=== PATIENT | female | born 1960 | race African-American/Black ===

== ENCOUNTER 2021-07-02 04:46 | Emergency (ER) | payer OTHER ==
[~2021-07-02] VITALS: Ht 170.2 cm; Wt 70.0 kg
[2021-07-02] MEDS ORDERED: HYDROcodone/APAP 5/325MG 1 TAB TABLET PO ONE (05:00)
[2021-07-02] MEDS ORDERED: KETOROLAC 60 MG/2 ML VIAL. IM ONE (05:00)
[2021-07-02] MEDS ORDERED: methylPREDNISolone SOD SUCC PF 125 MG/2 ML VIAL. IM ONE (05:00)
--- NOTE | 2021-07-02 05:09 | PHYS DOC ---
General Adult EDM: Chief Complaint: WRIST PAIN HPI: HPI: Patient is a 60 year old female who presents to ER for evaluation of right wrist pain. Patient states she woke up 2 days ago with right wrist pain. Patient states she slept on it. Patient denies any injury. Patient said the pain get worse, hurts worse with any movement. Patient denies any fever. Review of Systems: Review of Systems: Constitutional: Denies fever or chills. [] Eyes: Denies change in visual acuity. [] HENT: Denies nasal congestion or sore throat. [] Respiratory: Denies cough or shortness of breath. [] Cardiovascular: Denies chest pain or edema. [] GI: Denies abdominal pain, nausea, vomiting, bloody stools or diarrhea. [] : Denies dysuria. [] Musculoskeletal: Positive for right wrist pain Integument: Denies rash. [] Neurologic: Denies headache, focal weakness or sensory changes. [] Endocrine: Denies polyuria or polydipsia. [] Lymphatic: Denies swollen glands. [] Psychiatric: Denies depression or anxiety. [] Heart Score: C/O Chest Pain: N/A Risk Factors: Risk Factors: DM, Current or recent (<one month) smoker, HTN, HLP, family history of CAD, obesity. Risk Scores: Score 0 - 3: 2.5% MACE over next 6 weeks - Discharge Home Score 4 - 6: 20.3% MACE over next 6 weeks - Admit for Clinical Observation Score 7 - 10: 72.7% MACE over next 6 weeks - Early Invasive Strategies Current Medications: Current Medications Medications (Trade) Dose Ordered Sig/[facility] Start Time Stop Time Status Last Admin Dose Admin Acetaminophen/ Hydrocodone Bitart (Lortab 5/325) 1 tab 1X ONCE 07/02/21 05:00 07/02/21 05:01 UNV Ketorolac Tromethamine (Toradol Im) 60 mg 1X ONCE 07/02/21 05:00 07/02/21 05:01 UNV Methylprednisolone Sodium Succinate (SOLU-Medrol 125MG VIAL) 125 mg 1X ONCE 07/02/21 05:00 07/02/21 05:01 UNV Allergies: Allergies: Allergies Coded Allergies Type Severity Reaction Last Updated Verified No Known Drug Allergies 07/02/21 No Physical Exam: PE: Constitutional: Well developed, well nourished, no acute distress, non-toxic appearance. [] HENT: Normocephalic, atraumatic, bilateral external ears normal, oropharynx moist, no oral exudates, nose normal. [] Eyes: PERRLA, EOMI, conjunctiva normal, no discharge. [] Skin: Warm, dry, no erythema, no rash. [] Back: No tenderness, no CVA tenderness. [] Extremities: RIGHT WRIST IS TENDER TO PALPATION ON THE DORSAL SURFACE, WARM TO TOUCH, MINIMAL SWELLING. Neurologic: Alert and oriented X 3, normal motor function, normal sensory function, no focal deficits noted. [] Psychologic: Affect normal, judgement normal, mood normal. [] Current Patient Data: Labs: Current Medications Medications (Trade) Dose Ordered Sig/[facility]af Route PRN Reason Start Time Stop Time Status Last Admin Dose Admin Ketorolac Tromethamine (Toradol Im) 60 mg 1X ONCE IM 07/02/21 05:00 07/02/21 05:07 DC 07/02/21 05:13 Methylprednisolone Sodium Succinate (SOLU-Medrol 125MG VIAL) 125 mg 1X ONCE IM 07/02/21 05:00 07/02/21 05:07 DC 07/02/21 05:13 Acetaminophen/ Hydrocodone Bitart (Lortab 5/325) 1 tab 1X ONCE PO 07/02/21 05:00 07/02/21 05:07 DC 07/02/21 05:14 EKG: EKG: [] Radiology/Procedures: Radiology/Procedures: [][facility] [address] [place] [address] IMAGING REPORT Signed PATIENT: LAURA WILLETT ACCOUNT: [id number] : 1960 LOCATION: ER AGE: 60 SEX: F EXAM STATUS: PRE ER ORD. PHYSICIAN: DAVID SUH DO REASON: PAIN AND SWELLING FOR TWO DAYS PROCEDURE: WRIST 3V RIGHT INDICATION: Reason: PAIN AND SWELLING FOR TWO DAYS / Spl. Instructions: / History: COMPARISON: None. IMPRESSION: Right wrist: 3 views obtained. Degenerative changes are identified of the wrist. There is some prominence of the scapholunate interval measuring up to about 4 mm. Would correlate with symptoms in the region since causes such as scapholunate ligament injury is not excluded given this mild prominence. A definite acute fracture line is not seen. There is some soft tissue swelling. Electronically signed by: Wes Mcneil MD (07/02/2021 5:23 AM) [id number] DICTATED and SIGNED BY: WES MCNEIL MD DATE: 07/02/21517 Course & Med Decision Making: Course & Med Decision Making Pertinent Labs and Imaging studies reviewed. (See chart for details) Patient present to ER due to right wrist pain, possibly flaring of her arthritis. Patient was given steroids and Toradol in ER, she feel much better. Patient will be discharged home with steroids and NSAIDs. Her right wrist was placed on a PRE[employer]MED [employer] wrist splint. Dragon Disclaimer: Dragon Disclaimer: This electronic medical record was generated, in whole or in part, using a voice recognition dictation system. Departure Departure Impression: Primary Impression: Right wrist pain Additional Impression: Arthralgia of right wrist Disposition: 01 HOME / SELF CARE / HOMELESS Condition: IMPROVED Referrals: FABIOLA MARCH MD (PCP) Follow up with your doctor this week for reevaluation Patient Instructions: Arthralgia, Arthralgia, [id number], Wrist Pain Scripts Ibuprofen (IBUPROFEN) 600 Mg Tablet 600 MG PO PRN Q6HRS PRN for PAIN, #30 TAB Prov: DAVID SUH DO 07/02/21 Prednisone (PREDNISONE) 20 Mg Tablet 2 TAB PO DAILY for 5 Days, #10 TAB Prov: DAVID SUH DO 07/02/21 DAVID SUH DO July 02, 2021 05:09
--- NOTE | 2021-07-02 05:26 | RAD ---
INDICATION: Reason: PAIN AND SWELLING FOR TWO DAYS / Spl. Instructions: / History: COMPARISON: None. IMPRESSION: Right wrist: 3 views obtained. Degenerative changes are identified of the wrist. There is some promin ence of the scapholunate interval measuring up to about 4 mm. Would correlate with symptoms in the re gion since causes such as scapholunate ligament injury is not excluded given this mild prominence. A definite acute fracture line is not seen. There is some soft tissue swelling. Electronically signed by: Jose Mccrary MD (07/02/2021 5:23 AM) [id number]
[2021-07-02] MEDS ORDERED: PRED20TA PO (05:43)
[2021-07-02] MEDS ORDERED: IBUP-1007 PO (05:43)
[2021-07-02 05:50] VITALS: BP 156/93
== END 2021-07-02 05:50 | disposition home or self-care (01) ==
LOC: ER 04:46
DX: M25.531 Pain in right wrist (principal)
CPT/HCPCS: 73110; 96372; 99284; J1885; J2930